=== PATIENT | male | born 1975 | race Caucasian/White ===

== ENCOUNTER 2017-01-25 12:15 | Emergency (ER) | payer OTHER | END 2017-01-25 14:36 | disposition home or self-care (01) | LOC: FER 12:15 | DX: S23.3XXA Sprain of ligaments of thoracic spine, initial encounter (principal); S33.5XXA Sprain of ligaments of lumbar spine, initial encounter; F17.210 Nicotine dependence, cigarettes, uncomplicated; Z88.0 Allergy status to penicillin; W01.0XXA Fall on same level from slipping, tripping and stumbling without subsequent striking against object, initial encounter; Y92.410 Unspecified street and highway as the place of occurrence of the external cause | CPT/HCPCS: 72072; 72110; J1885 ==